=== PATIENT | female | born 1965 | race Caucasian/White ===

== ENCOUNTER 2016-11-19 13:48 | Day surgery (SDC) | payer OTHER ==
[2016-11-18 17:03] VITALS: BMI 21.2
[~2016-11-19 13:48] MED LIST: BETAMET ACET/BETAMET NA PH 30 MG/5 ML VIAL IJ ONE; BETAMET ACET/BETAMET NA PH 30 MG/5 ML VIAL IM ONE; BUPIVACAINE HCL/PF 0.25% (2.5MG/ML) 10 ML VIAL IJ ONE; IOHEXOL 180 MG/1 ML ML IJ ONE; LIDOCAINE HCL 1%, 10 MG/ML (20ML VIAL) IJ ONE
[2016-11-19 14:32] VITALS: TEMP 98.1
[2016-11-19] MEDS ORDERED: PROPOFOL 20 ML ONE ×2 (15:09→15:38)
[2016-11-19] MEDS ORDERED: BETAMET ACET/BETAMET NA PH 30 MG/5 ML VIAL IM ONE (15:34)
[2016-11-19] MEDS ORDERED: IOHEXOL 180 MG/1 ML ML IJ ONE (15:34)
[2016-11-19] MEDS ORDERED: BUPIVACAINE HCL/PF 0.25% (2.5MG/ML) 10 ML VIAL IJ ONE (15:34)
[2016-11-19] MEDS ORDERED: LIDOCAINE HCL 1%, 10 MG/ML (20ML VIAL) IJ ONE (15:34)
[2016-11-19 17:16] VITALS: BP 146/87; PULSE 78
--- NOTE | 2016-11-22 11:25 | OP ---
DATE OF OPERATION: 11/19/2016 PERFORMING PHYSICIAN: Alexa Serra MD PREOPERATIVE DIAGNOSIS: Low back pain, lumbar radiculopathy, status post lumbar fusion. POSTOPERATIVE DIAGNOSIS: Low back pain, lumbar radiculopathy, status post lumbar fusion. PROCEDURE: Lumbar epidural steroid injection, caudal approach, with percutaneous adhesiolysis. ANESTHESIA: Local and MAC ANESTHESIOLOGIST: Kavya Caballero MD DESCRIPTION OF PROCEDURE: I discussed with the patient in detail about risks, benefits, and alternative treatments, not only limited to infection, fever, headache, numbness, tingling, weakness, injury to blood vessels or muscles or nerves. Patient understood, agreed, and signed the written consent. The patient was placed in the prone position with the head, abdomen, and legs supported with pillows. The lumbosacral area was prepped and draped with Betadine x3 and alcohol x3. Under fluoroscopy, the sacral hiatus was identified. At this level, 3 mL of 1% lidocaine were infiltrated. A 16-gauge blunt-tipped Tuohy needle was used to expose the epidural space for the approach with intermittent fluoroscopy, both AP and lateral views. A stylet was removed and then was introduced into the epidural space. With intermittent fluoroscopy, up through the L5-S1 area. At this level, 4 mL of Omnipaque 180 were injected to see the flow of dye. There was obstruction of the dye. Then, 10 mL of a solution containing 2.5 mL of Celestone mixed with 2.5 mL of 0.25% Marcaine and 5 mL of normal saline, a total volume 10 mL, was injected through the catheter after negative aspiration. After that, 1 mL of Omnipaque was injected to see the flow of dye, which was up to the L4-L5 level. The catheter with the Tuohy needle was withdrawn. was put in, which was identified by . Bleeding was checked. Betadine was wiped off. A sterile bandage was placed. The patient was transferred to the recovery room, observed for some time, and discharged as per ASU criteria. The patient was told to apply ice. If any problem, call me or report to the ER. The patient was given a followup appointment. ALEXA SERRA M.D. BANDAR/[id number]
== END 2016-11-19 17:16 | disposition home or self-care (01) ==
LOC: JASU-SURG 13:48
PROVIDERS: ATTEND Physical Medicine & Rehabilitation
PROC: 3E0S33Z Introduction of Anti-inflammatory into Epidural Space, Percutaneous Approach (ICD-10-PCS; 2016-11-19)
PROC: B01BYZZ Fluoroscopy of Spinal Cord using Other Contrast (ICD-10-PCS; 2016-11-19)
PROC: 3E0S3BZ Introduction of Anesthetic Agent into Epidural Space, Percutaneous Approach (ICD-10-PCS; principal; 2016-11-19 15:00)
DX: M54.16 Radiculopathy, lumbar region (principal); Z98.1 Arthrodesis status; M54.5 Low back pain
CPT/HCPCS: 76000-TC; 84703

== ENCOUNTER 2018-10-10 14:38 | Emergency (ER) | payer OTHER ==
[2018-10-10 14:44] VITALS: TEMP 98.2; BMI 21.2
[2018-10-10] MEDS ORDERED: FAMOTIDINE 20 MG/50 ML IVPB 20 MG/50 ML MG IVPB ONE ×2 (15:27→15:50)
[2018-10-10] MEDS ORDERED: ONDANSETRON 4 MG/2 ML VIAL IVPUSH ONE (15:27)
[2018-10-10] MEDS ORDERED: SODIUM CHLORIDE 0.9% 1000 ML INFUS.BAG IV ONE ×2 (15:27→18:01)
[2018-10-10] MEDS ORDERED: ONDANSETRON 4 MG/2 ML VIAL ONE (15:50)
[2018-10-10] MEDS ORDERED: ACETAMINOPHEN 1000 MG/100 ML VIAL (NON FORMULARY) IVPB ONE (16:08)
--- NOTE | 2018-10-10 16:13 | PDOC ---
Attending Attestation - Resident Resident Name: Wilber Ramos - ED Attending Attestation I have performed the following: I have examined & evaluated the patient, The case was reviewed & discussed with the resident, I agree w/resident's findings & plan, Exceptions are as noted - HPI HPI: 10/10/18 16:22 53-year-old female in acute distress with PMH significant for pancreatitis presents today with chief complaint of vomiting and nausea. The vomiting began this morning at 0230 and has continued throughout the day. She states that this has never happened to her before and denies any recent consumption of rancid food, medications, and denies recent alcohol use. She denies taking any medication today to help with the vomiting and nausea. She also has been vomiting any water or food she consumes throughout the day. Patient has not traveled anywhere recently. Review of systems is positive for nausea, chills, 10 /10 abdominal pain, diarrhea (15-20 episodes today) and recent onset of slight hematemesis (around 1100 today). Observation of her vomit shows clear fluid with some food particles and tinged with blood. She denies any fevers, chest pain, shortness of breath, increased urinary frequency, dysuria, hematuria, or hematochezia. PMH: pancreatitis, hypertension PSH: spinal surgery in lumbar region Meds: medication for HTN Allergy: NKDA Social: Denies use of alcohol, denies history of tobacco use, denies use of illicit drugs 10/10/18 at 1635: Patient is sleeping and in no acute distress. - Physicial Exam PE: 10/10/18 16:08 GENERAL: The patient is actively vomiting ENT: Ears normal, nares patent, oropharynx clear without exudates. Dry mucous membranes. NECK: Normal range of motion, supple LUNGS: Breath sounds equal, clear to auscultation bilaterally. No wheezes, and no crackles. HEART:Regular rate and rhythm, normal S1 and S2 without murmur, rub or gallop. ABDOMEN: Soft, lower abdominal tenderness to palpation EXTREMITIES: Normal range of motion, no edema. NEUROLOGICAL: Cranial nerves II through XII grossly intact. Normal speech. No focal neurological deficits. SKIN: Warm, Dry, normal turgor, no rashes or lesions noted. 10/10/18 16:50 - Medical Decision Making 10/10/18 16:50 EKG - NSR rate of 62 bpm, axis nml, intervals nml, no st elevation or depression , t waves upright 10/10/18 18:14 Laboratory Tests 10/10/18 16:00 WBC 20.9 H Hgb 14.6 Hct 43.4 Plt Count 326 Neutrophils % 86.2 H 10/10/18 18:14 Laboratory Tests 10/10/18 16:00 Sodium 140 Potassium 4.8 Chloride 105 Carbon Dioxide 26 Anion Gap 9 BUN 13.9 Creatinine 0.9 Random Glucose 125 H Lipase 159 Pt leukocytosis and abdominal pain Will do CT Signed out to overnight attending
[2018-10-10 16:17] LABS: BASO % 0.2 % (0-2.0); HEMATOCRIT 43.4 % (32.4-45.2); HEMOGLOBIN 14.6 GM/dL (10.7-15.3); LYMPH % 9.5 % (8-40); MCH 30.3 pg (25.7-33.7); MCHC 33.7 g/dl (32.0-36.0); MEAN PLT VOLUME 9.2 fl (7.5-11.1); MONO % 4.1 % (3.8-10.2); NEUT % 86.2 % (42.8-82.8); RBC 4.82 M/mm3 (3.60-5.2); RDW 14.6 % (11.6-15.6); WHITE BLOOD COUNT 20.9 K/mm3 (4.0-10.0)
[2018-10-10 16:26] LABS: PLATELET COUNT 326 K/MM3 (134-434)
[2018-10-10 16:44] LABS: ALBUMIN 4.4 g/dl (3.4-5.0); BILIRUBIN,TOTAL 0.5 mg/dL (0.2-1); BLOOD UREA NITROGEN 13.9 mg/dL (7-18); CALCIUM 9.6 mg/dL (8.5-10.1); CREATININE 0.9 mg/dL (0.55-1.3); MAGNESIUM 1.9 mg/dL (1.8-2.4); PHOSPHOROUS 3.6 mg/dL (2.5-4.9); POTASSIUM 4.8 mmol/L (3.5-5.1); TOT PROT 8.4 g/dl (6.4-8.2)
[2018-10-10] MEDS ORDERED: ACETAMINOPHEN INJECTION 100 ML IVPB ONE (16:48)
--- NOTE | 2018-10-10 16:58 | PDOC ---
History of Present Illness - General Chief Complaint: Nausea/Vomiting Stated Complaint: VOMITING Time Seen by Provider: 10/10/18 15:27 History Source: Patient Exam Limitations: No Limitations - History of Present Illness Initial Comments: 10/10/18 16:48 53F with a PMH of pancreatitis who presents to the ER with complaints of abdominal pain, nausea, and vomiting. The patient states that she's had nausea, vomiting, and diarrhea since 0230 this morning. She states that she vomited NBNB "at least 10 times" and had nonbloody diarrhea "at least 15 times" [employer]. She admits to sharp epigastric pain, radiating to her back which she states "feels like my pancreatitis". Pt denies fever, chills, CP, SOB, dysuria, numbness, tingling, and weakness. Past History - Past Medical History Allergies/Adverse Reactions: Allergies Allergy/AdvReac Type Severity Reaction Status Date / Time No Known Allergies Allergy Verified 11/19/16 14:32 Home Medications: Ambulatory Orders Omeprazole 20 mg PO DAILY PRN 11/18/16 Albuterol Sulfate Inhaler - [Ventolin Hfa Inhaler -] 2 inh PO DAILY 11/19/16 Medroxyprogesterone Acetate [Provera -] 10 mg PO DAILY 11/19/16 Oxycodone HCl [Roxicodone] 10 mg PO QID 11/19/16 Alprazolam [Xanax] 1 mg PO BID 10/10/18 Amlodipine Besylate [Norvasc -] 10 mg PO DAILY 10/10/18 Anemia: No Asthma: Yes Cancer: No Cardiac Disorders: No CVA: No COPD: No CHF: No Dementia: No Diabetes: No GI Disorders: Yes ("PANCREAS PROBLEMS") Disorders: No HTN: Yes Hypercholesterolemia: No Liver Disease: No Seizures: No Thyroid Disease: No - Surgical History Abdominal Surgery: No Appendectomy: No Cardiac Surgery: No Cholecystectomy: No Lung Surgery: No Neurologic Surgery: Yes (BACK SX; EPIDURAL) Orthopedic Surgery: No - Suicide/Smoking/Psychosocial Hx Smoking Status: Yes Smoking History: Current every day smoker Have you smoked in the past 12 months: Yes Number of Cigarettes Smoked Daily: 2 Information on smoking cessation initiated: No 'Breaking Loose' booklet given: 11/18/16 Hx Alcohol Use: No Drug/Substance Use Hx: Yes Substance Use Type: Marijuana Hx Substance Use Treatment: No Review of Systems - Review of Systems Able to Perform ROS?: Yes Comments:: 10/10/18 17:04 GENERAL/CONSTITUTIONAL: No fever or chills. No weakness. HEAD, EYES, EARS, NOSE AND THROAT: No change in vision. No ear pain or discharge. No sore throat. CARDIOVASCULAR: No chest pain, palpitations, or lightheadedness. RESPIRATORY: No cough, wheezing, shortness of breath, or hemoptysis. GASTROINTESTINAL: + for abdominal pain, nausea, vomiting, and diarrhea. GENITOURINARY: No dysuria, frequency, hematuria, or change in urination. MUSCULOSKELETAL: No joint or muscle swelling or pain. No neck or back pain. SKIN: No rash or lesions. NEUROLOGIC: No headache, numbness, tingling, focal weakness, loss of consciousness, or change in strength/sensation. Is the patient limited Kinyarwanda proficient: No *Physical Exam - Vital Signs Last Vital Signs Temp Pulse Resp BP Pulse Ox 98.2 F 88 20 134/99 97 10/10/18 14:40 10/10/18 14:40 10/10/18 14:40 10/10/18 14:40 10/10/18 14:40 - Physical Exam Comments: 10/10/18 17:05 GENERAL: Well developed, well nourished. Awake and alert. Mild distress. HEENT: Normocephalic, atraumatic. Hearing grossly normal. Moist mucous membranes. PERRLA, EOMI. No conjunctival pallor. Sclera are non-icteric. Oropharynx is erythematous. NECK: Supple. Full ROM. No JVD. CARDIOVASCULAR: Regular rate and rhythm. No murmurs, rubs, or gallops. PULMONARY: No evidence of respiratory distress. Lungs clear to auscultation bilaterally. No wheezing, rales or rhonchi. ABDOMINAL: Soft. Tender to deep palpation in epigastrium. Non-distended. No rebound or guarding. GENITOURINARY: No CVA tenderness bilaterally. MUSCULOSKELETAL: Normal range of motion at all joints. No bony deformities or tenderness. EXTREMITIES: No cyanosis. No clubbing. No edema. No calf tenderness or swelling. SKIN: Warm and dry. Normal capillary refill. No rashes. No jaundice. NEUROLOGICAL: Alert, awake, appropriate. Cranial nerves 2-12 intact. Normal speech. Gait is normal without ataxia. PSYCHIATRIC: Cooperative. Good eye contact. Appropriate mood and affect. ED Treatment Course - LABORATORY CBC & Chemistry Diagram: 10/10/18 16:00 10/10/18 16:00 - ADDITIONAL ORDERS Additional order review: Laboratory Results 10/10/18 16:00 Sodium 140 Potassium 4.8 Chloride 105 Carbon Dioxide 26 Anion Gap 9 BUN 13.9 Creatinine 0.9 Est GFR (CKD-EPI)AfAm 84.61 Est GFR (CKD-EPI)NonAf 73.00 Random Glucose 125 H Calcium 9.6 Phosphorus 3.6 Magnesium 1.9 Total Bilirubin 0.5 AST 64 H ALT 40 Alkaline Phosphatase 77 Total Protein 8.4 H Albumin 4.4 Lipase 159 10/10/18 16:00 RBC 4.82 MCV 90.0 MCHC 33.7 RDW 14.6 MPV 9.2 Neutrophils % 86.2 H Lymphocytes % 9.5 Monocytes % 4.1 Eosinophils % 0.0 Basophils % 0.2 - RADIOLOGY Radiology Studies Ordered: Category Date Time Status CHEST X-RAY PORTABLE* [RAD] Stat Radiology 10/10/18 15:27 Ordered - Medications Given in the ED: ED Medications Discontinued Medications Generic Name Dose Route Start Last Admin Trade Name Freq PRN Reason Stop Dose Admin Famotidine/Sodium Chloride 20 mg in 50 mls @ 100 mls/hr 10/10/18 15:27 15:45 Pepcid 20 Mg Premixed Ivpb - IVPB 10/10/18 15:56 100 mls/hr ONCE ONE Administration Ondansetron HCl 4 mg 10/10/18 15:27 10/10/18 15:45 Zofran Injection IVPUSH 10/10/18 15:28 4 mg ONCE ONE Administration Sodium Chloride 1,000 ml 10/10/18 15:27 10/10/18 15:45 Normal Saline - IV 10/10/18 15:28 1,000 ml ONCE ONE Administration Medical Decision Making - Medical Decision Making 10/10/18 17:05 53F with a PMH of pancreatitis who presents to the ER with nausea, vomiting, diarrhea, and epigastric pain concerning for PUD, pancreatitis, gastritis. Pt denies EtOH, drugs, and tobacco. Lipase WNL. CBC shows WBC of 20, concerning for infection. Will obtain CXR and UA. Due to persistent tenderness, will obtain a CTAP to evaluate abdomen. 10/10/18 19:12 Pt signed out to Dr. Goldman for further evaluation.
[2018-10-10 17:05] LABS: ANISOCYTOSIS 0; MACROCYTOSIS 0; PLATELET ESTIMATE NORMAL
[2018-10-10] MEDS ORDERED: METOCLOPRAMIDE HCL INJECTION 10 MG/2 ML VIAL IVPB ONE (18:26)
[2018-10-10] MEDS ORDERED: METOCLOPRAMIDE HCL INJECTION 10 MG/2 ML VIAL ONE (19:01)
--- NOTE | 2018-10-10 19:19 | PDOC ---
*Physical Exam - Vital Signs Last Vital Signs Temp Pulse Resp BP Pulse Ox 98.2 F 88 20 134/99 97 10/10/18 14:40 10/10/18 14:40 10/10/18 14:40 10/10/18 14:40 10/10/18 14:40 ED Treatment Course - LABORATORY CBC & Chemistry Diagram: 10/10/18 16:00 10/10/18 16:00 - ADDITIONAL ORDERS Additional order review: Laboratory Results 10/10/18 10/10/18 16:00 16:00 Sodium 140 Potassium 4.8 Chloride 105 Carbon Dioxide 26 Anion Gap 9 BUN 13.9 Creatinine 0.9 Est GFR (CKD-EPI)AfAm 84.61 Est GFR (CKD-EPI)NonAf 73.00 Random Glucose 125 H Calcium 9.6 Phosphorus 3.6 Magnesium 1.9 Total Bilirubin 0.5 AST 64 H ALT 40 Alkaline Phosphatase 77 Total Protein 8.4 H Albumin 4.4 Lipase 159 Blood Type AB POSITIVE Antibody Screen Negative 10/10/18 16:00 RBC 4.82 MCV 90.0 MCHC 33.7 RDW 14.6 MPV 9.2 Neutrophils % 86.2 H Lymphocytes % 9.5 Monocytes % 4.1 Eosinophils % 0.0 Basophils % 0.2 - Medications Given in the ED: ED Medications Discontinued Medications Generic Name Dose Route Start Last Admin Trade Name Sena PRN Reason Stop Dose Admin Acetaminophen 1,000 mg 10/10/18 16:08 10/10/18 16:53 Ofirmev Injection - IVPB 10/10/18 16:09 1,000 mg ONCE ONE Administration Famotidine/Sodium Chloride 20 mg in 50 mls @ 100 mls/hr 10/10/18 15:27 15:45 Pepcid 20 Mg Premixed Ivpb - IVPB 10/10/18 15:56 100 mls/hr ONCE ONE Administration Metoclopramide HCl 10 mg 10/10/18 18:26 10/10/18 19:02 Reglan Injection - IVPB 10/10/18 18:27 10 mg ONCE ONE Administration Ondansetron HCl 4 mg 10/10/18 15:27 10/10/18 15:45 Zofran Injection IVPUSH 10/10/18 15:28 4 mg ONCE ONE Administration Sodium Chloride 1,000 ml 10/10/18 15:27 10/10/18 15:45 Normal Saline - IV 10/10/18 15:28 1,000 ml ONCE ONE Administration Sodium Chloride 1,000 ml 10/10/18 18:01 10/10/18 19:00 Normal Saline - IV 10/10/18 18:02 1,000 ml ONCE ONE Administration Medical Decision Making - Medical Decision Making 10/10/18 19:[address] Ramos. Patient is a 53 yo female w/ pmh of pancreatitis who presents for evaluation of abdominal pain. Lipase wnl. Patient currently pending CT Abd/Pelvis for further evaluation of pain and isolated elevated WBC. 10/10/18 22:43 CT negative for acute process. Patient reporting some improvement of symptoms and tolerating PO in ED. No concern for emergent process at this time and patient will be discharged for outpatient f/u w/ PCP. *DC/Admit/Observation/Transfer Diagnosis at time of Disposition: Abdominal pain Qualifiers: Abdominal location: unspecified location Qualified Code(s): R10.9 - Unspecified abdominal pain - Discharge Dispostion Disposition: HOME - Referrals [place] [facility] [place] [facility] [place] Group] - Patient Instructions Printed Discharge Instructions: DI for Abdominal Pain-Adult Additional Instructions: You were evaluated today in the ER for your symptoms. We performed evaluation with CT abdomen/pelvis with no concerning findings. We do not believe anything emergent is occurring at this time and you are safe for follow-up with primary care provider (PCP). We have also provided information which you may use to establish PCP if you do not currently have one. You may take over the counter motrin or tylenol per package instructions for pain control. Return to ER if any fever, chills, increase of pain, or other concerning symptoms. - Post Discharge Activity
[2018-10-10 22:20] LABS: EPI CELLS 0.5 /HPF (0-5/HPF); HYALINE CASTS 0 /lpf (0-8); URINE APPEARANCE CLEAR; URINE BACTERIA 4.4 /hpf (NEGATIVE); URINE BILIRUBIN NEGATIVE (NEGATIVE); URINE COLOR YELLOW; URINE GLUCOSE (UA) NEGATIVE (NEGATIVE); URINE KETONE NEGATIVE (NEGATIVE); URINE LEUK ESTERASE NEGATIVE (NEGATIVE); URINE NITRITE NEGATIVE (NEGATIVE); URINE PROTEIN 1+ (NEGATIVE); URINE RBC 2 /hpf (0-4); URINE UROBILINOGEN 0.2 mg/dL (0.2-1.0); URINE WBC 0 /hpf (0-5)
[2018-10-10 23:55] VITALS: BP 130/90; PULSE 84
--- NOTE | 2018-10-11 13:20 | EKG ---
Test Reason : Blood Pressure : / mmHG Vent. Rate : 062 BPM Atrial Rate : 062 BPM P-R Int : 170 ms QRS Dur : 084 ms QT Int : 464 ms P-R-T Axes : 073 059 029 degrees QTc Int : 470 ms NORMAL SINUS RHYTHM WITH SINUS ARRHYTHMIA NORMAL ECG NO PREVIOUS ECGS AVAILABLE Confirmed by MD SANTANA, RETA ([id number]) on 10/11/2018 1:20:11 PM Referred By: Confirmed By:RETA DILLON MD
== END 2018-10-10 23:56 | disposition home or self-care (01) ==
LOC: JER 14:38
PROC: 3E033NZ Introduction of Analgesics, Hypnotics, Sedatives into Peripheral Vein, Percutaneous Approach (ICD-10-PCS; principal; 2018-10-10)
PROC: 3E033GC Introduction of Other Therapeutic Substance into Peripheral Vein, Percutaneous Approach (ICD-10-PCS; 2018-10-10)
PROC: 3E033GC Introduction of Other Therapeutic Substance into Peripheral Vein, Percutaneous Approach (ICD-10-PCS; 2018-10-10)
PROC: 3E033GC Introduction of Other Therapeutic Substance into Peripheral Vein, Percutaneous Approach (ICD-10-PCS; 2018-10-10)
PROC: 3E0337Z Introduction of Electrolytic and Water Balance Substance into Peripheral Vein, Percutaneous Approach (ICD-10-PCS; 2018-10-10)
DX: R10.9 Unspecified abdominal pain (principal)
CPT/HCPCS: 36415; 71045-TC-FY; 74177-TC; 80053; 81003; 83690; 83735; 84100; 85025; 86850; 86900; 86901; 87086; 93005; 93010; 96365; 96375; 99283-25; J0131; J7030

== ENCOUNTER 2021-06-22 06:10 | Day surgery (SDC) | payer OTHER ==
[2021-06-22] MEDS ORDERED: MIDAZOLAM HCL 2 MG/2 ML SINGLE DOSE VIAL ONE (06:52)
[2021-06-22] MEDS ORDERED: ROPIVACAINE HCL/PF 100 MG/20 ML VIAL ONE (06:52)
[2021-06-22] MEDS ORDERED: DEXAMETHASONE SOD PHOSPHATE 10 MG/1 ML VIAL ONE (06:57)
[2021-06-22 07:19] VITALS: BMI 26.9
[2021-06-22] MEDS ORDERED: PROPOFOL 20 ML ONE ×4 (07:31→08:36)
[2021-06-22] MEDS ORDERED: EPINEPHrine 1:1,000 1,000 MCG/ML ML ONE (07:34)
[2021-06-22] MEDS ORDERED: BUPIVACAINE HCL/EPINEPHRINE/PF 30 ML VIAL IJ ONE (07:34)
[2021-06-22] MEDS ORDERED: BUPIVACAINE 0.25% /EPI 1:200,000 10 ML VIAL NR ONE (08:34)
[2021-06-22] MEDS ORDERED: SUCCINYLCHOLINE CHLORIDE 200 MG/10 ML SYRINGE ONE (08:36)
[2021-06-22] MEDS ORDERED: ONDANSETRON 4 MG/2 ML VIAL IVPUSH PRN (09:42)
[2021-06-22] MEDS ORDERED: oxyCODONE HCL 5 MG TABLET PO PRN (09:42)
[2021-06-22] MEDS ORDERED: LACTATED RINGERS SOLUTION 1,000 ML IV SCH (09:45)
[2021-06-22] MEDS ORDERED: ALBUTEROL SO4 0.042% IH SOL 1.25 MG/3 ML VIAL.NEB NEB ONE (09:48)
[2021-06-22] MEDS ORDERED: ALBUTEROL SO4 0.083% IH SOL 2.5 MG/3 ML VIAL.NEB. NEB ONE ×2 (09:48→09:50)
[2021-06-22 11:31] VITALS: TEMP 97.6
[2021-06-22] MEDS ORDERED: oxyCODONE HCL 5 MG TABLET ONE (11:37)
[2021-06-22 12:32] VITALS: BP 129/76; PULSE 73
== END 2021-06-22 12:15 | disposition home or self-care (01) ==
LOC: FASU 06:10
PROVIDERS: ATTEND Orthopaedic Surgery
PROC: 0RBK4ZZ Excision of Left Shoulder Joint, Percutaneous Endoscopic Approach (ICD-10-PCS; 2021-06-22)
PROC: 0LS40ZZ Reposition Left Upper Arm Tendon, Open Approach (ICD-10-PCS; 2021-06-22)
PROC: 0PBB4ZZ Excision of Left Clavicle, Percutaneous Endoscopic Approach (ICD-10-PCS; principal; 2021-06-22 08:34)
PROC: 0RNK4ZZ Release Left Shoulder Joint, Percutaneous Endoscopic Approach (ICD-10-PCS; 2021-06-22 08:34)
DX: M75.102 Unspecified rotator cuff tear or rupture of left shoulder, not specified as traumatic (principal); M67.814 Other specified disorders of tendon, left shoulder; M65.812 Other synovitis and tenosynovitis, left shoulder; S43.432A Superior glenoid labrum lesion of left shoulder, initial encounter; X58.XXXA Exposure to other specified factors, initial encounter; Y93.9 Activity, unspecified; Y92.9 Unspecified place or not applicable; M75.02 Adhesive capsulitis of left shoulder; M12.812 Other specific arthropathies, not elsewhere classified, left shoulder
CPT/HCPCS: 88304-TC; 94760; J1100